=== PATIENT | female | born 1935 | race Caucasian/White ===

== ENCOUNTER 2019-06-26 15:16 | Inpatient (IN) | payer OTHER ==
[~2019-06-26] VITALS: Ht 154.9 cm; Wt 65.8 kg
[~2019-06-26 15:16] MED LIST: ACETAMINOPHEN650 M5; AVAPRO 150 MG150 M1 PO; CALICUM 500+D1 EACH PO; COUMADIN 5 MG TA5 M1 PO; CRESTOR10 MG PO; CYMBALTA30 MG PO; DIGOXIN PO; DIOVAN40 MG PO; FISHOIL; GLIPIZIDE 10 MG10 MG PO; GLIPIZIDE ER2.5 MG PO; GLUCOPHAGE500 MG; GLUCOPHAGE500 MG PO; K-DUR10 MEQ PO; LASIX 20 MG TAB20 MG PO; MAGOX 400400 MG PO; MULTIPLE VITAM1 EAC3 PO; NAPROSYN500 MG PO; NORCO 5-325 TA1 EACH PO; PEPCID AC20 M1; PEPCID AC20 M1 PO; SYNTHROID88 MCG PO; TOPROL XL25 MG PO; TRAMADOL 50 MG50 MG PO; VITAMIN B-12100 MCG PO; ZANTAC 7575 MG PO
[2019-06-26 15:17] VITALS: BP 161/69
[2019-06-26 16:24] LABS: ABSOLUTE NEUTROPHILS 7.7 thou/uL (1.4-8.2); BASOPHILS 1.1 % (0.0-2.0); EOSINOPHILS 0.1 % (0.0-3.0); HEMOGLOBIN 12.1 gm/dL (12.0-15.0); LYMPHOCYTES 15.1 % (24.0-44.0); MCH 28.4 pg (26.0-34.0); MCHC 31.9 g/dL (28.0-37.0); MCV 88.8 fL (80.0-100.0); MONOCYTES 7.9 % (1.0-8.0); PLATELET COUNT 241 thou/uL (150-400); POLYS 75.8 % (36.0-66.0); RBC 4.28 mil/uL (4.20-5.00); RDW 16.1 % (10.5-14.5); WBC 10.2 thou/uL (4.0-11.0)
[2019-06-26 16:41] LABS: CREATININE 1.2 mg/dL (0.6-1.0); POTASSIUM 4.5 mmol/L (3.5-5.1)
[2019-06-26 16:42] LABS: APTT 30.6 Seconds (24.5-32.8); INR 1.5; PROTIME 15.2 Seconds (9.3-11.4)
[2019-06-26 16:46] LABS: ALBUMIN 3.4 g/dL (3.4-5.0); TOTAL BILIRUBIN 1.1 mg/dL (<0.1-1.0); TOTAL PROTEIN 7.5 g/dL (6.4-8.2)
[2019-06-26 17:02] LABS: URINE BILIRUBIN NEGATIVE (Negative); URINE BLOOD 3+ (Negative); URINE CLARITY CLEAR; URINE COLOR YELLOW; URINE GLUCOSE-RANDOM* NEGATIVE (Negative); URINE KETONES NEGATIVE (Negative); URINE LEUKOCYTES-REFLEX NEGATIVE (Negative); URINE NITRITE-REFLEX NEGATIVE (Negative); URINE PROTEIN (DIPSTICK) NEGATIVE (Negative); URINE UROBILINOGEN 0.2 E.U./dl (0.2-1.0)
[2019-06-26 17:22] LABS: AMP/METHAMP Negative (Negative); BARBITURATES Negative (Negative); BENZODIAZEPINES Negative (Negative); COCAINE Negative (Negative); METHADONE Negative (Negative); OPIATES Negative (Negative); PCP Negative (Negative)
[2019-06-26 17:25] LABS: BACTERIA-REFLEX None Seen /HPF (None Seen); CASTS None Seen /LPF (None Seen); CRYSTALS None Seen /LPF (None Seen); SQUAMOUS 0-3 Few /LPF (0-3); URINE RBC >20 Many /HPF (0-2); URINE WBC-REFLEX 0-5 Rare /HPF (0-5)
[2019-06-26 19:07] LABS: CHOLESTEROL 106 mg/dL (<200); HDL CHOLESTEROL 35 mg/dL (>40); LDL CHOLESTEROL 60 mg/dL (<100); TRIGLYCERIDE 55 mg/dL (<150); VLDL 11 mg/dL (<40)
[2019-06-26 19:09] LABS: SERUM ASSESSMENT Clear
[2019-06-26 19:31] VITALS: BP 123/61
[2019-06-26 19:50] VITALS: BP 140/55
[2019-06-27 05:28] LABS: CALCIUM 8.4 mg/dL (8.5-10.1); CREATININE 1.1 mg/dL (0.6-1.0); MAGNESIUM 1.6 mg/dL (1.8-2.4); POTASSIUM 3.8 mmol/L (3.5-5.1)
[2019-06-27 05:30] LABS: ABSOLUTE NEUTROPHILS 5.7 thou/uL (1.4-8.2); BASOPHILS 0.7 % (0.0-2.0); EOSINOPHILS 2.6 % (0.0-3.0); HEMATOCRIT 33.5 % (37.0-47.0); HEMOGLOBIN 10.9 gm/dL (12.0-15.0); LYMPHOCYTES 21.1 % (24.0-44.0); MCH 29.1 pg (26.0-34.0); MCHC 32.5 g/dL (28.0-37.0); MCV 89.7 fL (80.0-100.0); MONOCYTES 11.9 % (1.0-8.0); PLATELET COUNT 215 thou/uL (150-400); POLYS 63.7 % (36.0-66.0); RBC 3.74 mil/uL (4.20-5.00); RDW 16.1 % (10.5-14.5); WBC 8.9 thou/uL (4.0-11.0)
[2019-06-27 07:32] VITALS: BP 151/90
[2019-06-27 15:29] VITALS: BP 154/88
[2019-06-27 19:31] VITALS: BP 137/86
[2019-06-28 00:07] LABS: GLYCOHEMOGLOBIN (HGB A1C) 5.7 % (4.8-5.6)
[2019-06-28 07:52] VITALS: BP 165/90
--- NOTE | 2019-06-28 10:35 | 2DMMODE ---
[facility] [place] [address] 2 D/M-MODE ECHOCARDIOGRAM Name: JENNIFER MAYES Room #: 453-P [facility] IN ..#: [id number] Admission: 06/26/19 Attend Phys: Azael Ray MD Discharge: Date of : 31 Report #: [id number] THIS REPORT FOR: //name// APPROVED REPORT Study performed: 06/28/2019 08:18:32 EXAM: Comprehensive 2D, Doppler, and color-flow Echocardiogram Patient Location: Echo lab Status: routine BSA: 1.67 HR: 95 bpm BP: 165/90 mmHg Rhythm: Atrial Fibrillation Other Information Study Quality: Adequate Indications Elevated BNNP. HX: MT, AFIB, Defibrillator 2D Dimensions RVDd: 53.29 mm IVSd: 15.42 (7-11mm) LVOT Diam: 20.28 (18-24mm) LVDd: 44.23 mm PWd: 11.66 (7-11mm) Ascending Ao: 37.42 (22-36mm) LVDs: 40.41 (25-40mm) Aortic Root: 30.66 mm IVC: 29.00 mm Volumes Left Atrial Volume (Systole) Single Plane 4CH: 138.78 mL Single Plane 2CH: 144.55 mL LA ESV Index: 89.00 mL/m2 Aortic Valve AoV Peak Humphrey.: 1.58 m/s AO Peak Gr.: 10.95 mmHg LVOT Max P.78 mmHg LVOT Max V: 0.67 m/s MANJIT Vmax: 1.36 cm2 Mitral Valve MV Peak Gr.: 13.83 mmHg MV Mean Gr.: 4.73 mmHg [facility] [address] [address] 2 D/M-MODE ECHOCARDIOGRAM Name: JENNIFER MAYES Room #: 453-[facility]#: [id number] Admission: 06/26/19 Attend Phys: Azael Ray MD Discharge: Date of : 31 Report #: [id number] MV Max Humphrey.: 1.86 m/s MV Mean Humphrey.: 0.97 m/s MV VTI: 318.46 mm MV PHT: 48.15 ms MVA (PHT): 4.57 cm2 Pulmonary Valve PV Peak Humphrey.: 0.79 m/s PV Peak Gr.: 2.51 mmHg Tricuspid Valve TR Peak Humphrey.: 3.73 m/s RAP Estimate: 15.00 mmHg TR Peak Gr.: 26.71 mmHg PA Pressure: 41.00 mmHg Left Ventricle The left ventricle is normal size. Regional wall motion abnormalities are noted. There is akinesis in the apical wall. Mild concentric left ventricular hypertrophy. Left ventricular ejection fraction is moderate to severely decreased. LVEF is 20-25%. This study is not technically sufficient to allow evaluation of the LV diastolic function due to atrial fibrillation. Right Ventricle Right ventricle is dilated. The right ventricular systolic function is normal. Device lead is present in the right ventricle. Atria Left atrium is severely dilated. Right atrium is dilated. Device lead is present in the right atrium. Aortic Valve Aortic valve leaflets are thickened. Aortic valve is calcified. Trace aortic regurgitation. There is no aortic valvular stenosis. Mitral Valve There is mitral annular calcification. Severe mitral regurgitation. Mild mitral stenosis. Calculated mitral valve area is 4.6 cm2 with maximum pressure gradient of 14 mmHg and mean pressure gradient of 5 mmHg. Tricuspid Valve The tricuspid valve is normal in structure. Moderate to severe tricuspid regurgitation. Estimated PAP is 41mmHg. Pulmonic Valve The pulmonary valve is normal in structure. Trace pulmonic [address] [address] 2 D/M-MODE ECHOCARDIOGRAM Name: JENNIFER MAYES Room #: 453-P [facility] IN ..#: [id number] Admission: 06/26/19 Attend Phys: Azael Ray MD Discharge: Date of : 31 Report #: [id number] regurgitation. Great Vessels The aortic root is normal in size. The ascending aorta is normal in size. The inferior vena cava is dilated with no inspiratory collapse. Pericardium There is no pericardial effusion. <Conclusion> The left ventricle is normal size. LVEF is 20-25%. Regional wall motion abnormalities are noted. There is akinesis in the apical wall. Right ventricle is dilated. Device lead is present in the right ventricle. Left atrium is severely dilated. Right atrium is dilated. Device lead is present in the right atrium. Aortic valve leaflets are thickened. Aortic valve is calcified. Trace aortic regurgitation. There is mitral annular calcification. Severe mitral regurgitation. The tricuspid valve is normal in structure. Moderate to severe tricuspid regurgitation. Estimated PAP is 41mmHg. The pulmonary valve is normal in structure. Trace pulmonic regurgitation. There is no pericardial effusion. <ELECTRONICALLY SIGNED> By: Juan Santillan MD 06/28/19 1034 1034 [id number] Juan Santillan MD /INF
[2019-06-28 10:50] LABS: CALCIUM 8.8 mg/dL (8.5-10.1); MAGNESIUM 1.8 mg/dL (1.8-2.4); POTASSIUM 4.3 mmol/L (3.5-5.1); TROPONIN-I 0.06 ng/mL (<0.06)
[2019-06-28 11:40] VITALS: BP 160/76
--- NOTE | 2019-06-28 16:49 | EKG ---
[address] [address] ELECTROCARDIOGRAM REPORT Name: JENNIFER MAYES Room #: 214-P ADM IN M.R.#: [id number] Admission: 06/26/19 Attend Phys: Azael Ray MD Discharge: Date of : 31 Report #: [id number] THIS REPORT FOR: //name// [facility] Test Date: 2019-06-28 Test Time: 10:32:55 Pat Name: JENNIFER MAYES Department: Room: 214 Gender: F Armed [employer] Officer: Winston JOHNSON : 1935 Requested By: Kwame Streeter Order Number: [id number] MD: Caio Watts Measurements Intervals Sullivan Rate: 78 P: [place]: QRS: -36 QRSD: 96 T: 239 QT: 455 QTc: 519 Interpretive Statements Atrial fibrillation Left axis deviation Anterior infarct, old Borderline repolarization abnormality Compared to ECG 07/22/2010 15:02:58 Electronically Signed On 06-28-2019 16:49:20 [employer]EL INST[employer]ER by Caio Watts [email or web address] <ELECTRONICALLY SIGNED> By: Caio Watts MD 06/28/19 1649 31 31 Caio Watts MD /CARLOS
[2019-06-28 19:25] VITALS: BP 151/82
[2019-06-29 03:55] VITALS: BP 157/80
[2019-06-29 07:29] LABS: HEMATOCRIT 39.5 % (37.0-47.0); HEMOGLOBIN 12.4 gm/dL (12.0-15.0); MCH 28.3 pg (26.0-34.0); MCHC 31.4 g/dL (28.0-37.0); RBC 4.39 mil/uL (4.20-5.00); RDW 16.6 % (10.5-14.5); WBC 12.9 thou/uL (4.0-11.0)
[2019-06-29 07:34] LABS: CALCIUM 8.9 mg/dL (8.5-10.1); CREATININE 1.2 mg/dL (0.6-1.0); POTASSIUM 4.8 mmol/L (3.5-5.1)
[2019-06-29 08:00] VITALS: BP 125/87
[2019-06-29 12:00] VITALS: BP 143/89
[2019-06-29 15:08] LABS: URINE BILIRUBIN NEGATIVE (Negative); URINE BLOOD NEGATIVE (Negative); URINE CLARITY CLEAR; URINE COLOR YELLOW; URINE GLUCOSE-RANDOM* NEGATIVE (Negative); URINE KETONES NEGATIVE (Negative); URINE LEUKOCYTES-REFLEX NEGATIVE (Negative); URINE NITRITE-REFLEX NEGATIVE (Negative); URINE PROTEIN (DIPSTICK) NEGATIVE (Negative); URINE SPECIFIC GRAVITY 1.025 (1.005-1.035)
[2019-06-29 16:00] VITALS: BP 150/97
[2019-06-29 19:55] VITALS: BP 151/83
[2019-06-30 03:32] VITALS: BP 152/85
[2019-06-30 04:09] LABS: BASOPHILS 0.5 % (0.0-2.0); EOSINOPHILS 0.1 % (0.0-3.0); HEMATOCRIT 41.3 % (37.0-47.0); LYMPHOCYTES 15.6 % (24.0-44.0); MCH 28.3 pg (26.0-34.0); MCHC 31.4 g/dL (28.0-37.0); MCV 90.2 fL (80.0-100.0); MONOCYTES 10.1 % (1.0-8.0); PLATELET COUNT 302 thou/uL (150-400); POLYS 73.7 % (36.0-66.0); RBC 4.58 mil/uL (4.20-5.00); RDW 16.7 % (10.5-14.5); WBC 14.9 thou/uL (4.0-11.0)
[2019-06-30 04:27] LABS: CALCIUM 9.1 mg/dL (8.5-10.1); CREATININE 1.5 mg/dL (0.6-1.0); MAGNESIUM 2.1 mg/dL (1.8-2.4); POTASSIUM 5.2 mmol/L (3.5-5.1)
[2019-06-30 06:02] LABS: ANISOCYTOSIS 1+; LARGE PLATELETS FEW; PLATELET ESTIMATE NORMAL; POIKILOCYTOSIS 1+
[2019-06-30 07:16] VITALS: BP 129/91
[2019-06-30 11:00] VITALS: BP 105/85
[2019-06-30 16:00] VITALS: BP 143/73
[2019-06-30 20:51] VITALS: BP 156/88
[2019-07-01 06:04] LABS: ABSOLUTE NEUTROPHILS 7.9 thou/uL (1.4-8.2); BASOPHILS 0.3 % (0.0-2.0); EOSINOPHILS 0.8 % (0.0-3.0); HEMATOCRIT 39.1 % (37.0-47.0); HEMOGLOBIN 12.3 gm/dL (12.0-15.0); LYMPHOCYTES 21.5 % (24.0-44.0); MCH 28.1 pg (26.0-34.0); MCHC 31.4 g/dL (28.0-37.0); MCV 89.5 fL (80.0-100.0); MONOCYTES 9.2 % (1.0-8.0); PLATELET COUNT 265 thou/uL (150-400); POLYS 68.2 % (36.0-66.0); RBC 4.37 mil/uL (4.20-5.00); WBC 11.6 thou/uL (4.0-11.0)
[2019-07-01 06:28] LABS: CALCIUM 8.9 mg/dL (8.5-10.1); CREATININE 1.3 mg/dL (0.6-1.0); POTASSIUM 3.7 mmol/L (3.5-5.1)
[2019-07-01 07:35] VITALS: BP 168/92
[2019-07-01 11:20] VITALS: BP 153/94
[2019-07-01 15:45] VITALS: BP 166/84
[2019-07-01 20:10] VITALS: BP 153/75
[2019-07-02 01:16] VITALS: BP 187/99
[2019-07-02 04:59] LABS: CALCIUM 9.1 mg/dL (8.5-10.1); HEMATOCRIT 39.8 % (37.0-47.0); HEMOGLOBIN 12.2 gm/dL (12.0-15.0); MAGNESIUM 1.9 mg/dL (1.8-2.4); MCH 27.8 pg (26.0-34.0); MCHC 30.7 g/dL (28.0-37.0); MCV 90.4 fL (80.0-100.0); POTASSIUM 3.3 mmol/L (3.5-5.1); RBC 4.41 mil/uL (4.20-5.00); RDW 16.9 % (10.5-14.5); WBC 11.3 thou/uL (4.0-11.0)
[2019-07-02 05:53] VITALS: BP 117/97
[2019-07-02 20:45] VITALS: BP 121/85
[2019-07-03 04:00] VITALS: BP 155/73
[2019-07-03 05:01] LABS: HEMATOCRIT 39.3 % (37.0-47.0); HEMOGLOBIN 12.5 gm/dL (12.0-15.0); MCH 28.3 pg (26.0-34.0); MCHC 31.8 g/dL (28.0-37.0); MCV 89.1 fL (80.0-100.0); RBC 4.41 mil/uL (4.20-5.00); RDW 17.3 % (10.5-14.5); WBC 9.4 thou/uL (4.0-11.0)
[2019-07-03 05:11] LABS: POTASSIUM 3.5 mmol/L (3.5-5.1)
[2019-07-03 07:30] VITALS: BP 137/77
[2019-07-03 11:30] VITALS: BP 170/79
[2019-07-03 14:57] VITALS: BP 145/85
[2019-07-03 15:42] VITALS: BP 165/89
[2019-07-03 19:59] VITALS: BP 138/76
[2019-07-04 04:49] VITALS: BP 136/79
[2019-07-04 08:00] VITALS: BP 135/93
[2019-07-04 08:52] VITALS: BP 135/93
[2019-07-04] MEDS ORDERED: ASA5UEC PO (14:42)
[2019-07-04] MEDS ORDERED: COZAAR 25 MG TA25 M2 PO (14:42)
[2019-07-04] MEDS ORDERED: PROTONIX40 M1 PO (14:43)
[2019-07-04] MEDS ORDERED: LEVAQUIN 500 M500 M3 PO (14:43)
== END 2019-07-04 16:45 | DRG 682 ==
LOC: ER 15:16 → 4W 18:16 → 2N 18:16 → EROBS 18:16 → 4W 19:43 → 2N 06-28 11:00
PROVIDERS: Emergency Medicine; Hospitalist; Internal Medicine; Nurse Practitioner; Nurse Practitioner Family; ADMIT Hospitalist
PROC: 2W3QX1Z Immobilization of Right Lower Leg using Splint (ICD-10-PCS; principal; 2019-06-26)
DX: N17.9 Acute kidney failure, unspecified (principal); I50.23 Acute on chronic systolic (congestive) heart failure; G92 Toxic encephalopathy; E87.1 Hypo-osmolality and hyponatremia; I48.20 Chronic atrial fibrillation, unspecified; I47.2 Ventricular tachycardia; I48.21 Permanent atrial fibrillation; I13.0 Hypertensive heart and chronic kidney disease with heart failure and stage 1 through stage 4 chronic kidney disease, or unspecified chronic kidney disease; E03.9 Hypothyroidism, unspecified; R31.29 Other microscopic hematuria; E78.5 Hyperlipidemia, unspecified; I27.20 Pulmonary hypertension, unspecified; N18.3 Chronic kidney disease, stage 3 (moderate); F32.9 Major depressive disorder, single episode, unspecified; M17.11 Unilateral primary osteoarthritis, right knee; M25.461 Effusion, right knee; E11.22 Type 2 diabetes mellitus with diabetic chronic kidney disease; I25.5 Ischemic cardiomyopathy; I25.10 Atherosclerotic heart disease of native coronary artery without angina pectoris; S00.83XA Contusion of other part of head, initial encounter; D72.829 Elevated white blood cell count, unspecified; Z79.82 Long term (current) use of aspirin; Z95.0 Presence of cardiac pacemaker; I25.2 Old myocardial infarction; Z98.42 Cataract extraction status, left eye; Z98.41 Cataract extraction status, right eye; Z90.710 Acquired absence of both cervix and uterus; Z88.0 Allergy status to penicillin; Z88.2 Allergy status to sulfonamides; Z79.01 Long term (current) use of anticoagulants; Z79.899 Other long term (current) drug therapy; W18.39XA Other fall on same level, initial encounter; Y93.89 Activity, other specified; Y92.89 Other specified places as the place of occurrence of the external cause; Y99.8 Other external cause status
CPT/HCPCS: 10040; 10081; 10194